=== PATIENT | female | born 1945 | race Caucasian/White ===

== ENCOUNTER → 2020-11-27 | Outpatient (CLI) | payer MEDICARE, OTHER ==
[~2020-11-27] MED LIST: ALEVE 220MG220 MG PO; ASPIRIN 81M81 MG/TA2 PO; CRESTOR 10MG10 MG PO; EFFIENT10 MG PO; GLUCOPHAGE1000 MG PO; HCTZ 25MG TAB25 MG PO; LANTUS100 U/ML SC; LOPRESSOR 550 MG/TAB PO; MOBIC 7.5MG7.5 MG PO; NITROSTAT0.4 MG/TAB SL; NORVASC 10MG10 MG PO; NORVASC 5MG5 MG/TAB PO; TOPROL XL 50MG50 MG PO; ULTRAM 50MG TAB50 MG PO; VASCEPA1 GM PO; ZESTRIL40 MG PO; ZETIA 10MG TAB10 MG PO
== END ==
LOC: COL.LAB 08:00 → COL.CAR 12-03 07:00 → EDSTATUS 12-03 07:00
DX: U07.1 COVID-19 (principal)

== ENCOUNTER 2020-12-29 07:09 | Day surgery (SDC) | payer MEDICARE, OTHER ==
[2020-12-29] VITALS (13 sets, daily range): BP systolic 101–174; BP diastolic 52–94; PULSE 61–71; TEMP 98.2
[~2020-12-29] VITALS: Ht 154.9 cm; Wt 83.7 kg
[~2020-12-29 07:09] MED LIST changes: -ALEVE 220MG220 MG PO; -LOPRESSOR 550 MG/TAB PO; -NITROSTAT0.4 MG/TAB SL; -NORVASC 5MG5 MG/TAB PO; -VASCEPA1 GM PO
[2020-12-29 07:58] LABS: HEMATOCRIT 45.5 % (37.0-47.0); HEMOGLOBIN 15.4 g/dl (12.5-16.0); MEAN CELL VOLUME 88 fl (80.0-100.0); MEAN CORPUSCULAR HEMOGLOBIN 30 pg (27.0-31.0); MEAN CORPUSCULAR HGB CONC 34 g/dl (33.0-37.0); MEAN PLATELET VOLUME 10.5 fl (7.4-10.4); PLATELET COUNT 232 K/mm3 (130-400); RED BLOOD COUNT 5.18 M/mm3 (4.10-5.30); REDCELL DISTRIBUTION WIDTH-CV 13.3 % (11.5-14.5)
[2020-12-29 08:05] LABS: PROTHROMBIN TIME 10.7 SECONDS (9.7-12.8)
[2020-12-29 08:08] LABS: CALCIUM 10.7 mg/dL (8.4-10.2); CREATININE, serum 0.58 (0.52-1.25); POTASSIUM 3.9 mmol/L (3.4-5.0)
[2020-12-29] MEDS ORDERED: VASCEPA1 GM PO (08:35)
[2020-12-29] MEDS ORDERED: LOPRESSOR 550 MG/TAB PO (08:36)
[2020-12-29] MEDS ORDERED: NITROSTAT0.4 MG/TAB SL (08:44)
[2020-12-29] MEDS ORDERED: ALEVE 220MG220 MG PO (08:45)
--- NOTE | 2020-12-29 09:16 | NUR ---
SEE MERGE FOR ALL MEDICATION ADMINISTRATION TIMES, INTRA AND POST SEDATION ASSESS;MENTS
[2020-12-29] MEDS ORDERED: NORVASC 5MG5 MG/TAB PO (09:58)
--- NOTE | 2020-12-29 14:30 | NUR ---
Discharge instructions given to pt.Pt verbalizes understanding.INT removed,catheter tip intact.Dressing to right groin observed clean,dry,intact,soft to touch.Pt escorted out via wheelchair by this nurse.
== END 2020-12-29 15:43 | disposition home or self-care (01) ==
LOC: COL.CAR 07:09
PROVIDERS: Internal Medicine Cardiovascular Disease
DX: I25.10 Atherosclerotic heart disease of native coronary artery without angina pectoris (principal); I10 Essential (primary) hypertension; Z95.1 Presence of aortocoronary bypass graft; Z20.822 Contact with and (suspected) exposure to COVID-19; Z88.7 Allergy status to serum and vaccine
CPT/HCPCS: C1760; C1769; C1894; J1644; J2250; J3010